=== PATIENT | male | born 1965 | race Caucasian/White ===

== ENCOUNTER 2018-07-19 20:07 | Emergency (ER) ==
[2018-07-19 20:18] VITALS: BP 159/96; TEMP 99.5; BMI 29.7
[2018-07-19] MEDS ORDERED: BACTRIM DS 800/160 MG PO STA (21:15)
[2018-07-19] MEDS ORDERED: MOTRIN PO STA (21:21)
--- NOTE | 2018-07-19 21:28 | ED.PDOC ---
General ED Provider: Dr. SHE BAUTISTA Chief Complaint: Finger Pain/Injury Stated Complaint: Left index finger luis and swelling at the base of the finger. Denies any trauma Time Seen by Physician: 21:00 Mode of Arrival: Walk-In Information Source: Patient Nursing and Triage Documentation Reviewed and Agree: Yes Does patient meet sepsis criteria?: No System Inflammatory Response Syndrome: Not Applicable Sepsis Protocol: For patient's 13 years and over: Temp is 96.8 and below OR 101 and greater Pulse >90 BPM Resp >20/minute Acutely Altered Mental Status Are patient's symptoms suggestive of a new infection, such as: -Pneumonia -Skin, Soft Tissue -Endocarditis -UTI -Bone, Joint Infection -Implantable Device -Acute Abdominal Infection -Wound Infection -Meningitis -Blood Stream Catheter Infection -Unknown Skin Complaint Exam - Skin/Soft Tissue Complaint/Exam Onset/Duration: 1 day Symptoms Are: Still present Timing: Constant Initial Severity: Moderate Current Severity: Moderate Location: Left index finger Character: Reports: Redness, Swelling, Painful Aggravating: Reports: Touch Alleviating: Reports: None Associated Signs and Symptoms: Reports: Tenderness, Red streaks. Denies: Fever , Chills, Itching, Drainage, Bruising, Joint swelling Related Surgical History: Reports: None Recent Exposure to Others w/Similar Symptoms: No Skin Findings: Present: Erythema, Induration, Skin lesion Differential Diagnoses: Abscess, Infection Review of Systems - Review Of Systems Constitutional: Reports: No symptoms Eyes: Reports: No symptoms Ears, Nose, Mouth, Throat: Reports: No symptoms Respiratory: Reports: No symptoms Cardiac: Reports: No symptoms GI: Reports: No symptoms : Reports: No symptoms Musculoskeletal: Reports: Joint pain (left index figer ) Skin: Reports: Lesions (left index finger infection.) Neurological: Reports: Anxiety Endocrine: Reports: No symptoms Hematologic/Lymphatic: Reports: No symptoms All Other Systems: Reviewed and Negative Past Medical History - Past Medical History Previously Healthy: Yes Endocrine: Reports: DM 2 Cardiovascular: Reports: Hypertension Respiratory: Reports: None Hematological: Reports: None Gastrointestinal: Reports: Liver (hepatitis C) Genitourinary: Reports: Kidney stones Neuro/Psych: Reports: CVA Musculoskeletal: Reports: None Cancer: Reports: None - Surgical History General Surgical History: Reports: Cholecystectomy, Other (Glass removed from the hand ) - Family History Family History: Reports: None - Social History Smoking Status: Current every day smoker, Heavy tobacco smoker Hx Substance Use: No Alcohol Screening: Occasionally - Immunizations Tetanus Shot up to Date: Yes (2018) Physical Exam - Physical Exam Appearance: Well-appearing Ill-appearing: Mild Pain Distress: Moderate Neck: Supple Respiratory: Airway patent Cardiovascular: RRR, Pulses normal, No rub, No murmur Musculoskeletal: Normal strength, ROM intact, No edema, No calf tenderness Skin: Warm, Dry, Normal color Neurological: Alert, Oriented Psychiatric: Anxious Critical Care Note - Critical Care Note Total Time (mins): 0 Course - Course Orders, Labs, Meds: Orders Category Date Time Status Ibuprofen [Motrin] MEDS 07/19/18 21:21 Discontinued 800 mg PO ONCE STA Sulfamethoxazole/Trimethoprim [Bactrim Ds 800/160 mg] MEDS 07/19/18 21:15 Discontinued 1 tab PO ONCE STA Medications Discontinued Medications Generic Name Dose Route Start Last Admin Trade Name Freq PRN Reason Stop Dose Admin Ibuprofen 800 mg 07/19/18 21:21 07/19/18 21:31 Motrin PO 07/19/18 21:22 800 mg ONCE STA Administration Trimethoprim/Sulfamethoxazole 1 tab 07/19/18 21:15 07/19/18 21:31 Bactrim Ds 800/160 Mg PO 07/19/18 21:16 1 tab ONCE STA Administration Vital Signs: Temp Pulse Resp BP Pulse Ox 07/19/18 20:10 99.5 F 72 20 159/96 H 96 Departure - Departure Time of Disposition: 21:34 Disposition: HOME SELF-CARE Discharge Problem: Pyonychia of finger of left hand Instructions: Paronychia (ED) Condition: Fair Pt referred to PMD for follow-up: Yes IPMP verified?: No Additional Instructions: Take medications as prescribed Follow up with PCP in 3 days Prescriptions: Ibuprofen [Motrin] 600 mg PO Q6H PRN #30 tablet PRN Reason: Analgesia Sulfamethoxazole/Trimethoprim [Bactrim Ds Tablet] 1 each PO BID #20 tablet Allergies/Adverse Reactions: Allergies Fish Containing Products Adverse Reaction (Verified 07/19/18 20:19) Difficulty Breathing Penicillins Adverse Reaction (Verified 07/19/18 20:18) Rash Home Medications: Ambulatory Orders Ibuprofen [Motrin] 600 mg PO Q6H PRN #30 tablet 07/19/18 Sulfamethoxazole/Trimethoprim [Bactrim Ds Tablet] 1 each PO BID #20 tablet 07/19 Disposition Discussed With: Patient
== END 2018-07-19 21:39 | disposition home or self-care (01) ==
LOC: ED 20:07
DX: M25.542 Pain in joints of left hand (principal); M25.442 Effusion, left hand; F41.9 Anxiety disorder, unspecified; Z72.0 Tobacco use; L03.012 Cellulitis of left finger
CPT/HCPCS: 99282

== ENCOUNTER 2018-09-24 17:46 | Emergency (ER) ==
[2018-09-24 18:06] VITALS: TEMP 96.5; BMI 28.3
[2018-09-24] MEDS ORDERED: TORADOL IVP STA (19:31)
[2018-09-24] MEDS ORDERED: TYLENOL PO STA (19:31)
--- NOTE | 2018-09-24 19:43 | ED.PDOC ---
General ED Provider: Dr. SHE BAUTISTA Chief Complaint: Syncope Stated Complaint: Patient is a 52 year old male who lives in [place] was here visiting his brother comes to the ER with complains of multiple syncopal episodes for 3 days. Episodes occur at rest. He also complains of chest pains off and on for the past 2.5 weeks lasting 15-20 mins at times. Not associated with diaphoresis and Today he had another fainting episode hitting his forehead occured about 4 hours ago. Time Seen by Physician: 19:43 Mode of Arrival: Walk-In Information Source: Patient Exam Limitations: No limitations Primary Care Provider: RITESH MOBLEY Nursing and Triage Documentation Reviewed and Agree: Yes Does patient meet sepsis criteria?: No System Inflammatory Response Syndrome: Not Applicable Sepsis Protocol: For patient's 13 years and over: Temp is 96.8 and below OR 101 and greater Pulse >90 BPM Resp >20/minute Acutely Altered Mental Status Are patient's symptoms suggestive of a new infection, such as: -Pneumonia -Skin, Soft Tissue -Endocarditis -UTI -Bone, Joint Infection -Implantable Device -Acute Abdominal Infection -Wound Infection -Meningitis -Blood Stream Catheter Infection -Unknown Review of Systems - Review Of Systems Constitutional: Denies: Diaphoresis, Loss of appetite Cardiac: Reports: Chest pain, Lightheadedness, Syncope GI: Reports: No symptoms. Denies: Nausea : Reports: No symptoms Musculoskeletal: Reports: No symptoms Skin: Reports: No symptoms Neurological: Reports: Anxiety Endocrine: Reports: No symptoms Hematologic/Lymphatic: Reports: No symptoms All Other Systems: Reviewed and Negative Past Medical History - Past Medical History Previously Healthy: Yes Endocrine: Reports: DM 2 Cardiovascular: Reports: Hypertension Respiratory: Reports: None Hematological: Reports: None Gastrointestinal: Reports: Liver (hepatitis C) Genitourinary: Reports: Kidney stones Neuro/Psych: Reports: CVA Musculoskeletal: Reports: None Cancer: Reports: None - Surgical History General Surgical History: Reports: Cholecystectomy, Other (Glass removed from the hand ) - Family History Family History: Reports: None - Social History Smoking Status: Current every day smoker Hx Substance Use: No Alcohol Screening: Occasionally - Immunizations Tetanus Shot up to Date: Yes Physical Exam - Physical Exam Appearance: Ill-appearing Ill-appearing: Moderate Pain Distress: Severe Eyes: SRIDEVI, EOMI Neck: Supple Respiratory: Airway patent, Breath sounds clear, Breath sounds equal, Respirations nonlabored Cardiovascular: RRR, Pulses normal (chest pain not reproduceable. ) GI/: Soft, Nontender, No masses, Bowel sounds normal, No Organomegaly Musculoskeletal: Normal strength, ROM intact Skin: Warm, Dry Neurological: Sensation intact, Alert, Oriented Psychiatric: Anxious Interpretation - Radiology Interpretation Radiology Interpretation By: Radiologist Radiology Results: Negative Exam Interpreted: CT Scan - EKG Interpretation Time of EKG #1: 19:02 Rate: Normal Rhythm: Sinus Ectopy: None [place]: NL ST Segment: Normal Interpretation: incomplete right bundle BB Re-Evaluation - Re-Evaluation Time of Re-Evaluation: 22:46 Status: Improved Vital Signs Stable: Yes - Re-Evaluation Time of Re-Evaluation: 23:42 Status: Improved (mildly ) Vital Signs Stable: Yes Pain Level: 5/10 Physician Notification - Case Discussed Physician Notified: Dr Goodman Time of Notification: 22:46 (ok to admit to [facility] but may not get paid by insurance. Get cardiology consult) Physician Notified: Dr. Chow At [facility] Time of Notification: 23:44 (accepted for transfer to [facility]) Critical Care Note - Critical Care Note Total Time (mins): 45 Course - Course Hematology/Chemistry: 09/24/18 19:45 09/24/18 19:45 Orders, Labs, Meds: Lab Review 09/24/18 09/24/18 09/24/18 19:45 19:45 19:45 WBC 13.57 H RBC 5.19 Hgb 14.8 Hct 44.7 MCV 86.1 MCH 28.5 MCHC 33.1 RDW Coeff of Scout 12.9 Plt Count 300 Immature Gran % (Auto) 0.4 Neut % (Auto) 57.8 Lymph % (Auto) 31.9 Hubbard % (Auto) 7.4 Eos % (Auto) 1.8 Baso % (Auto) 0.7 Immature Gran # (Auto) 0.1 Neut # (Auto) 7.9 H Lymph # (Auto) 4.3 H Hubbard # (Auto) 1.0 Eos # (Auto) 0.2 Baso # (Auto) 0.1 D-Dimer (Manual) 261.55 Sodium 137.9 Potassium 4.22 Chloride 98.8 Carbon Dioxide 31.8 H Anion Gap 11.52 BUN 10.8 Creatinine 0.79 Estimated GFR (MDRD) 104.00 BUN/Creatinine Ratio 13.67 Glucose 272.0 H Calcium 9.80 Total Bilirubin 0.55 AST 20.4 ALT 20.4 Alkaline Phosphatase 81.6 Total Creatine Kinase 54.6 L Troponin I < 0.012 NT-Pro-B Natriuret Pep Total Protein 7.63 Albumin 4.52 Globulin 3.11 Albumin/Globulin Ratio 1.45 09/24/18 19:45 WBC RBC Hgb Hct MCV MCH MCHC RDW Coeff of Scout Plt Count Immature Gran % (Auto) Neut % (Auto) Lymph % (Auto) Hubbard % (Auto) Eos % (Auto) Baso % (Auto) Immature Gran # (Auto) Neut # (Auto) Lymph # (Auto) Hubbard # (Auto) Eos # (Auto) Baso # (Auto) D-Dimer (Manual) Sodium Potassium Chloride Carbon Dioxide Anion Gap BUN Creatinine Estimated GFR (MDRD) BUN/Creatinine Ratio Glucose Calcium Total Bilirubin AST ALT Alkaline Phosphatase Total Creatine Kinase Troponin I NT-Pro-B Natriuret Pep 45.600 Total Protein Albumin Globulin Albumin/Globulin Ratio Orders Category Date Time Status EKG-(ED ONLY) Stat CARDIO 09/24/18 18:58 Completed EKG-(ED ONLY) Stat CARDIO 09/24/18 19:22 Completed ED IV/MEDIPORT/POWERPORT .ONCE EMERGENCY 09/24/18 19:31 Active Orthostatic [ED ORTHOSTATIC VITAL SIGNS] .ONCE EMERGENCY 09/24/18 21:31 Active CBC W/ AUTO DIFF Stat LAB 09/24/18 19:45 Completed COMPREHENSIVE METABOLIC PANEL Stat LAB 09/24/18 19:45 Completed CREATINE KINASE Stat LAB 09/24/18 19:45 Completed D-DIMER Stat LAB 09/24/18 19:45 Completed NT-PROBNP Stat LAB 09/24/18 19:45 Completed TROPONIN I Stat LAB 09/24/18 19:45 Completed 0.9 % Sodium Chloride [Saline Flush] MEDS 09/24/18 19:31 Discontinued 1 syr IVF PRN PRN Acetaminophen [Tylenol] MEDS 09/24/18 19:31 Discontinued 1,000 mg PO ONCE STA Ketorolac Tromethamine [Toradol] MEDS 09/24/18 19:31 Discontinued 30 mg IVP ONCE STA Nalbuphine HCl [Nubain] MEDS 09/24/18 22:23 Discontinued 10 mg IVP ONCE STA Nitroglycerin [Nitrostat] MEDS 09/24/18 23:05 Discontinued 0.4 mg SL ONCE STA Sodium Chloride 0.9% [Sodium Chloride] 1,000 ml MEDS 09/24/18 21:32 Discontinued IV BOLUS CHEST, 1V AP ONLY Stat RADS 09/24/18 19:[address] HEAD W/O CONTRAST Stat RADS 09/24/18 19:22 Completed Medications Discontinued Medications Generic Name Dose Route Start Last Admin Trade Name Freq PRN Reason Stop Dose Admin Acetaminophen 1,000 mg 09/24/18 19:31 09/24/18 20:52 Tylenol PO 09/24/18 19:32 1,000 mg ONCE STA Administration Sodium Chloride 1,000 mls @ 1,000 mls/hr 09/24/18 21:32 09/24/18 22:18 Sodium Chloride IV 09/24/18 22:31 1,000 mls/hr BOLUS STA Administration Ketorolac Tromethamine 30 mg 09/24/18 19:31 09/24/18 20:58 Toradol IVP 09/24/18 19:32 30 mg ONCE STA Administration Nalbuphine HCl 10 mg 09/24/18 22:23 09/24/18 22:30 Nubain IVP 09/24/18 22:24 10 mg ONCE STA Administration Nitroglycerin 0.4 mg 09/24/18 23:05 09/24/18 23:10 Nitrostat SL 09/24/18 23:06 0.4 mg ONCE STA Administration Sodium Chloride 1 syr 09/24/18 19:31 09/24/18 20:59 Saline Flush IVF 1 syr PRN PRN Administration To flush IV Vital Signs: Temp Pulse Resp BP Pulse Ox 09/24/18 21:52 56 L 147/84 H 09/24/18 21:51 60 148/92 H 09/24/18 17:55 96.5 F L 77 18 147/100 H 98 Departure - Departure Time of Disposition: 23:45 Disposition: TSF SHORT-TRM HOSP Discharge Problem: Syncope Chest pain Qualifiers: Chest pain type: unspecified Qualified Code(s): R07.9 - Chest pain, unspecified Condition: Stable Pt referred to PMD for follow-up: Yes IPMP verified?: No Allergies/Adverse Reactions: Allergies Fish Containing Products Adverse Reaction (Verified 09/24/18 18:54) Difficulty Breathing Penicillins Adverse Reaction (Verified 09/24/18 18:54) Rash Home Medications: Ambulatory Orders Albuterol Sulfate [Ventolin Hfa] 2 puff IH Q6HR PRN 09/24/18 Amitriptyline HCl [Elavil] 25 mg PO BEDTIME 09/24/18 Budesonide/Formoterol Fumarate [Symbicort 160-4.5 Mcg Inhaler] 2 puff IH BID Hum Insulin NPH/Reg Insulin Hm [Humulin 70-30] 17 units SUBCUT BID PRN 09/24/18 Metronidazole [Flagyl] 250 mg PO TID 09/24/18 Promethazine HCl 12.5 mg PO DIRECTED PRN 09/24/18 Sitagliptin Phosphate [Januvia] 100 mg PO DAILY 09/24/18 Pt. Stabilized Within Hospital's Capabilities/Transferred To: [facility] Transfer Form Completed: Yes Disposition Discussed With: Patient, Family
--- NOTE | 2018-09-24 20:08 | CT ---
EXAM: CT head without contrast HISTORY: Trauma COMPARISON: None. TECHNIQUE: Helical axial CT of the head was performed without contrast. Coronal and sagittal reconst ructions were performed. FINDINGS: There is no acute intracranial abnormality. There is no hemorrhage, mass, midline shift, abnormal ex tra-axial fluid collection, hydrocephalus or evolving ischemia. The levy-white matter junction is wel l maintained. There is no evidence of intravascular clot. Brain parenchyma, ventricles and sulci are normal. There are no acute calvarial lesions. Visualized orbits and globes are unremarkable. The mastoid ai r cells demonstrate no significant soft tissue opacification. The visualized paranasal sinuses show n o air-fluid levels. IMPRESSION: Negative head CT as described with no acute post traumatic intracranial abnormality.
--- NOTE | 2018-09-24 20:10 | DI ---
EXAM: Single view chest COMPARISON: None HISTORY: Syncope and trauma FINDINGS: There is some mild atelectasis in the left base with some modest vascular congestion. The re is no overt failure or lobar infiltrate. There is no large effusion. Cardiac and mediastinal rory houettes show no acute abnormality. No acute soft tissue or osseous abnormalities. IMPRESSION: 1. Left basilar atelectasis and vascular congestion.
[2018-09-24] MEDS ORDERED: SODIUM CHLORIDE 1,000 ML IV STA (21:32)
[2018-09-24 21:53] VITALS: BP 147/84
[2018-09-24] MEDS ORDERED: NUBAIN IVP STA (22:23)
[2018-09-24] MEDS ORDERED: NITROSTAT SL STA (23:05)
== END 2018-09-25 00:09 | disposition short-term general hospital (02) ==
LOC: ED 17:46
DX: R07.9 Chest pain, unspecified (principal); R55 Syncope and collapse; S09.90XA Unspecified injury of head, initial encounter; R42 Dizziness and giddiness; E11.9 Type 2 diabetes mellitus without complications; I10 Essential (primary) hypertension; F17.210 Nicotine dependence, cigarettes, uncomplicated; W19.XXXA Unspecified fall, initial encounter; Z79.4 Long term (current) use of insulin; Z79.899 Other long term (current) drug therapy; Z86.73 Personal history of transient ischemic attack (TIA), and cerebral infarction without residual deficits; Z87.442 Personal history of urinary calculi
CPT/HCPCS: 36415; 80053; 82550; 83880; 84484; 85025; 85379; 93005; 93010; 96361; 96374; 96375; 99285

== ENCOUNTER 2018-09-25 00:08 | Outpatient (CLI) ==
[2018-09-24 18:06] VITALS: BMI 28.3
== END 2018-09-25 00:29 | disposition short-term general hospital (02) ==
LOC: AMBL 00:08
PROVIDERS: ATTEND Internal Medicine Geriatric Medicine
DX: R55 Syncope and collapse (principal); R07.9 Chest pain, unspecified

== ENCOUNTER 2018-10-27 17:24 | Emergency (ER) ==
[2018-10-27 17:28] VITALS: TEMP 99.6; BMI 28.5
--- NOTE | 2018-10-27 18:26 | ED.PDOC ---
General ED Provider: Dr. PAUL HEART Chief Complaint: Sore Throat Stated Complaint: Neck and throat pain. States has not felt well-very fatigued. State has sore throat with white patches, fever. Has been nauseated and dizzy , non productive cough and left side of chest hurts. Hx Type II Diabetes. States from [place]-visiting his brother here Time Seen by Physician: 18:15 Mode of Arrival: Walk-In Information Source: Patient Exam Limitations: No limitations Primary Care Provider: RITESH MOBLEY Nursing and Triage Documentation Reviewed and Agree: Yes Does patient meet sepsis criteria?: No System Inflammatory Response Syndrome: Not Applicable Sepsis Protocol: For patient's 13 years and over: Temp is 96.8 and below OR 101 and greater Pulse >90 BPM Resp >20/minute Acutely Altered Mental Status Are patient's symptoms suggestive of a new infection, such as: -Pneumonia -Skin, Soft Tissue -Endocarditis -UTI -Bone, Joint Infection -Implantable Device -Acute Abdominal Infection -Wound Infection -Meningitis -Blood Stream Catheter Infection -Unknown Cardiovascular Complaint Exam - Chest Pain Complaint/Exam Onset: Gradual Symptoms Are: Resolved Timing: Intermittent Initial Severity: Moderate Current Severity: Mild Location: Reports: Left anterior Pain Radiates: Reports: None Character: Reports: Dull, Aching, Pressure Aggravating: Reports: None Alleviating: Reports: Rest Associated Signs and Symptoms: Denies: Diaphoresis, Nausea, Vomiting, Fever, Palpitations, Cough, Hemoptysis, Back pain, Abdominal pain, Dizziness, Short of air, Calf pain, Calf swelling Review of Systems - Review Of Systems Constitutional: Reports: Malaise, Weakness Eyes: Reports: No symptoms Ears, Nose, Mouth, Throat: Reports: No symptoms Respiratory: Reports: No symptoms, Cough Cardiac: Reports: No symptoms (lt side aching), Chest pain GI: Reports: No symptoms : Reports: No symptoms Musculoskeletal: Reports: No symptoms Skin: Reports: No symptoms Neurological: Reports: No symptoms Endocrine: Reports: No symptoms Hematologic/Lymphatic: Reports: No symptoms All Other Systems: Reviewed and Negative Past Medical History - Past Medical History Previously Healthy: Yes Endocrine: Reports: DM 2 Cardiovascular: Reports: Hypertension Respiratory: Reports: None Hematological: Reports: None Gastrointestinal: Reports: Liver (hepatitis C) Genitourinary: Reports: Kidney stones Neuro/Psych: Reports: CVA Musculoskeletal: Reports: None Cancer: Reports: None - Surgical History General Surgical History: Reports: Cholecystectomy, Other (Glass removed from the hand ) - Family History Family History: Reports: None - Social History Smoking Status: Current every day smoker Hx Substance Use: No Alcohol Screening: Occasionally Physical Exam - Physical Exam Appearance: Well-appearing Ill-appearing: Mild Pain Distress: None Eyes: SRIDEVI, EOMI, Conjunctiva clear ENT: Ears normal, Nose normal, Oropharynx normal, Erythema Neck: Supple (NO JVD or HJR noted to exam) Respiratory: Airway patent, Breath sounds clear, Breath sounds equal, Respirations nonlabored Cardiovascular: RRR, Pulses normal, No rub, No murmur GI/: Soft Musculoskeletal: Normal strength, ROM intact, No edema, No calf tenderness Skin: Warm, Dry, Normal color Neurological: Sensation intact, Motor intact, Reflexes intact, Cranial nerves intact, Alert, Oriented Psychiatric: Affect appropriate, Mood appropriate Interpretation - EKG Interpretation Time of EKG #1: 17:40 Rate: Normal Rhythm: Sinus Ectopy: None Interpretation: Incomplete RBBB Critical Care Note - Critical Care Note Total Time (mins): 0 Course - Course Hematology/Chemistry: 10/27/18 18:35 10/27/18 18:35 Orders, Labs, Meds: Lab Review 10/27/18 10/27/18 10/27/18 18:35 18:35 18:35 WBC 13.38 H RBC 4.84 Hgb 14.0 Hct 42.1 MCV 87.0 MCH 28.9 MCHC 33.3 RDW Coeff of Scout 13.1 Plt Count 288 Immature Gran % (Auto) 0.4 Neut % (Auto) 59.3 Lymph % (Auto) 29.1 Roane % (Auto) 9.2 Eos % (Auto) 1.6 Baso % (Auto) 0.4 Immature Gran # (Auto) 0.1 Neut # (Auto) 7.9 H Lymph # (Auto) 3.9 H Roane # (Auto) 1.2 Eos # (Auto) 0.2 Baso # (Auto) 0.1 Sodium 142.0 Potassium 4.12 Chloride 101.1 Carbon Dioxide 32.0 H Anion Gap 13.02 BUN 10.1 Creatinine 0.91 Estimated GFR (MDRD) 88.00 BUN/Creatinine Ratio 11.09 Glucose 126.9 H Calcium 9.84 Total Bilirubin 0.44 AST 17.2 ALT 16.8 Alkaline Phosphatase 67.5 Total Creatine Kinase 81.6 Troponin I < 0.012 NT-Pro-B Natriuret Pep Total Protein 7.64 Albumin 4.39 Globulin 3.25 Albumin/Globulin Ratio 1.35 Urine Color Urine Clarity Urine pH Ur Specific [place]gate Urine Protein Urine Glucose (UA) Urine Ketones Urine Blood Urine Nitrite Urine Bilirubin Urine Urobilinogen Ur Leukocyte Esterase Urine Microscopic RBC Ur Squamous Epith Cells Amorphous Sediment Urine Opiates Screen Ur Oxycodone Screen Urine Methadone Screen Ur Propoxyphene Screen Ur Barbiturates Screen U Tricyclic Antidepress Ur Phencyclidine Scrn Ur Amphetamine Screen U Methamphetamines Scrn U Benzodiazepines Scrn Urine Cocaine Screen U Cannabinoids Screen Influ A Molecular Assay Negative by naat Influ B Molecular Assay Negative by naat 10/27/18 10/27/18 10/27/18 18:35 19:10 19:10 WBC RBC Hgb Hct MCV MCH MCHC RDW Coeff of Scout Plt Count Immature Gran % (Auto) Neut % (Auto) Lymph % (Auto) Ro[place] % (Auto) Eos % (Auto) Baso % (Auto) Immature Gran # (Auto) Neut # (Auto) Lymph # (Auto) Roane # (Auto) Eos # (Auto) Baso # (Auto) Sodium Potassium Chloride Carbon Dioxide Anion Gap BUN Creatinine Estimated GFR (MDRD) BUN/Creatinine Ratio Glucose Calcium Total Bilirubin AST ALT Alkaline Phosphatase Total Creatine Kinase Troponin I NT-Pro-B Natriuret Pep 54.700 Total Protein Albumin Globulin Albumin/Globulin Ratio Urine Color Yellow Urine Clarity Clear Urine pH 6.5 Ur Specific [place] 1.025 Urine Protein Trace Urine Glucose (UA) Negative Urine Ketones Negative Urine Blood Negative Urine Nitrite Negative Urine Bilirubin Negative Urine Urobilinogen 1.0 Ur Leukocyte Esterase Negative Urine Microscopic RBC 2-5 Ur Squamous Epith Cells 2-5 Amorphous Sediment Trace Urine Opiates Screen Negative Ur Oxycodone Screen Negative Urine Methadone Screen Negative Ur Propoxyphene Screen Negative Ur Barbiturates Screen Negative U Tricyclic Antidepress Negative Ur Phencyclidine Scrn Negative Ur Amphetamine Screen Negative U Methamphetamines Scrn Negative U Benzodiazepines Scrn Negative Urine Cocaine Screen Negative U Cannabinoids Screen Negative Influ A Molecular Assay Influ B Molecular Assay Orders Category Date Time Status EKG-(ED ONLY) Stat CARDIO 10/27/18 17:55 Completed CBC W/ AUTO DIFF Stat LAB 10/27/18 18:35 Completed CMP [COMPREHENSIVE METABOLIC PANEL] Stat LAB 10/27/18 18:35 Completed CPK [CREATINE KINASE] Stat LAB 10/27/18 18:35 Completed FLU A & B MOLECULAR [FLU A/B MOLECULAR] Stat LAB 10/27/18 18:35 Completed PRO-BNP [NT-PROBNP] Stat LAB 10/27/18 18:35 Completed RAPID STREP SCREEN [MOLECULAR GROUP A STREP] Stat LAB 10/27/18 18:35 Completed TROPONIN I Stat LAB 10/27/18 18:35 Completed UA [URINALYSIS C & S IF INDICATED] Stat LAB 10/27/18 19:10 Completed URINE DRUG SCREEN (RAPID FOR ED) [DRUG SCREEN, URINE, LAB 10/27/18 19:10 Completed RAPID] Stat CHEST, 2 VIEWS PA & LAT Stat RADS 10/27/18 18:24 Completed Vital Signs: Temp Pulse Resp BP Pulse Ox 10/27/18 19:32 161/81 H 10/27/18 18:15 72 129/95 H 98 10/27/18 17:30 80 14 160/92 H 98 10/27/18 17:24 99.6 F 76 20 151/94 H 97 TONA Risk Score TONA Risk Score: Risk Score Odds of by 30D 0 0.1 (0.1-0.2) 1 0.3 (0.2-0.3) 2 0.4 (0.3-0.5) 3 0.7 (0.6-0.9) 4 1.2 (1.0-1.5) 5 2.2 (1.9-2.6) 6 3.0 (2.5-3.6) 7 4.8 (3.8-6.1) Departure - Departure Time of Disposition: 19:30 Disposition: HOME SELF-CARE Discharge Problem: URI (upper respiratory infection), Pharyngitis, Hypertension Instructions: Upper Respiratory Infection (ED), Hypertension (ED) Condition: Good Pt referred to PMD for follow-up: Yes IPMP verified?: No Additional Instructions: Remain on current meds Establish with Local PCP or return to [place] Prescriptions: Azithromycin [Zithromax] 250 mg PO DAILY #6 tablet Lisinopril 10 mg PO DAILY #15 tablet Allergies/Adverse Reactions: Allergies Fish Containing Products Adverse Reaction (Verified 10/27/18 17:28) Difficulty Breathing Penicillins Adverse Reaction (Verified 10/27/18 17:28) Rash Home Medications: Ambulatory Orders Albuterol Sulfate [Ventolin Hfa] 2 puff IH Q6HR PRN 09/24/18 Amitriptyline HCl [Elavil] 25 mg PO BEDTIME 09/24/18 Budesonide/Formoterol Fumarate [Symbicort 160-4.5 Mcg Inhaler] 2 puff IH BID Hum Insulin NPH/Reg Insulin Hm [Humulin 70-30] 17 units SUBCUT BID PRN 09/24/18 Sitagliptin Phosphate [Januvia] 100 mg PO DAILY 09/24/18 Azithromycin [Zithromax] 250 mg PO DAILY #6 tablet 10/27/18 Lisinopril 10 mg PO DAILY #15 tablet 10/27/18 Transfer Form Completed: Yes Disposition Discussed With: Patient
--- NOTE | 2018-10-27 19:03 | DI ---
Exam: Two views of the chest. Comparison: 09/24/2018. Reason for exam: Chest and neck discomfort. FINDINGS: No pneumothorax, pleural effusion, or focal consolidation. The cardiac silhouette is not enlarged. The imaged osseous structures appear grossly unremarkable without acute fracture. Similar appearing mildly increased interstitial lung markings. Impression: Mild pulmonary vascular congestion without pneumothorax, pleural effusion, or focal airspace consolid ation
[2018-10-27 19:40] VITALS: BP 129/95
== END 2018-10-27 19:48 | disposition home or self-care (01) ==
LOC: ED 17:24
DX: J06.9 Acute upper respiratory infection, unspecified (principal); J02.9 Acute pharyngitis, unspecified; I10 Essential (primary) hypertension; E11.9 Type 2 diabetes mellitus without complications; R07.9 Chest pain, unspecified; R42 Dizziness and giddiness; F17.210 Nicotine dependence, cigarettes, uncomplicated; Z79.899 Other long term (current) drug therapy
CPT/HCPCS: 36415; 80053; 80306; 81001; 82550; 83880; 84484; 85025; 87502; 87651; 93005; 93010; 99283

== ENCOUNTER 2020-02-15 21:56 | Observation (INO) ==
[2020-02-15 22:31] LABS: BASOPHILS # (AUTO) 0.1 K/uL (0-0.2); BASOPHILS % (AUTO) 0.4 % (0.0-3.0); EOSINOPHILS # (AUTO) 0.2 K/ul (0.0-0.7); EOSINOPHILS % (AUTO) 1.9 % (0.0-7.0); HEMATOCRIT 44.2 % (42.0-52.0); IMMATURE GRANULOCYTE % (AUTO) 0.3 % (0.0-5.0); LYMPHOCYTES # (AUTO) 3.1 K/uL (0.60-3.4); LYMPHOCYTES % (AUTO) 26.3 (10.0-50.0); MEAN CORPUSCULAR HEMOGLOBIN 29.4 pg (27.0-31.0); MEAN CORPUSCULAR HGB CONC 33.9 (31.8-35.4); MEAN CORPUSCULAR VOLUME 86.7 fl (80.0-94.0); MONOCYTES # (AUTO) 1.2 K/uL (0.4-2.0); MONOCYTES % (AUTO) 9.6 (0-10); NEUTROPHILS # (AUTO) 7.3 K/ul (2.0-6.9); NEUTROPHILS % (AUTO) 61.5 % (42.2-75.2); PLATELET COUNT 271 10^3/uL (140-440); RDW COEFFICIENT OF VARIATION 12.6 % (11.6-14.8); WHITE BLOOD COUNT 11.94 K/ul (4.2-10.2)
[2020-02-15 22:43] LABS: ALANINE AMINOTRANSFERASE 16.4 U/L (0-50); ALBUMIN 3.88 g/dL (3.5-5.0); ALKALINE PHOSPHATASE 95.5 U/L (38-126); ASPARTATE AMINO TRANSFERASE 17.3 U/L (17-59); BILIRUBIN,TOTAL 0.47 mg/dL (0.2-1.3); BLOOD UREA NITROGEN 9.7 mg/dL (9-20); CALCIUM 9.58 mg/dL (8.4-10.2); CARBON DIOXIDE 29.9 mmol/L (22-30.0); CHLORIDE 96.7 mmol/L (98-107); CREATINE KINASE 36.5 U/L (55-170); CREATININE 0.71 mg/dL (0.60-1.10); POTASSIUM 4.71 mmol/L (3.5-5.1); SODIUM 133.2 mmol/L (134.5-145); TOTAL PROTEIN 7.24 g/dL (6.3-8.2)
[2020-02-15 22:49] LABS: GLUCOSE 618.4 mg/dL (74-106)
[2020-02-15] MEDS ORDERED: SODIUM CHLORIDE 1,000 ML IV STA (22:52)
[2020-02-15 22:55] LABS: TROPONIN I < 0.012 ng/ml (0.0000-0.120)
--- NOTE | 2020-02-15 22:55 | CT ---
EXAM: CT scan brain without contrast HISTORY: Trauma COMPARISON: CT scan brain 11/26/2019 FINDINGS: Contiguous axial images obtained from skull base to the convexities without contrast utili zing 5-mm collimation. Sagittal and coronal reconstructions were imaged and reviewed. The ventricles and CSF spaces are within normal limits. There are no acute intracranial findings.. The visualized paranasal sinuses and mastoid air cells are clear. The calvarium is intact. IMPRESSION: No acute intracranial findings
[2020-02-15] MEDS ORDERED: HUMULIN R IVP STA (22:56)
--- NOTE | 2020-02-15 23:08 | CT ---
EXAM: CT scan facial bones without contrast HISTORY: Trauma COMPARISON: None. FINDINGS: Contiguous axial images obtained through the facial bones without contrast 3-mm collimatio n. Sagittal and coronal reveals reactions were imaged and reviewed.. The orbital structures are int act. The visualized paranasal sinuses are clear. The maxilla is edentulous. Multiple teeth missing are within the mandible. There are multiple caries. There is a lytic destructive process involving the anterior aspect of the maxilla on the left. IMPRESSION: Attention was maxilla. Peripheral disease within the mandible. Lytic destructive process involving the anterior aspect of the maxilla on the left. Consider non emergent MRI for further characterization.
--- NOTE | 2020-02-15 23:09 | ED.PDOC ---
General ED Provider: Dr. PAUL GEORGES-ER Chief Complaint: Tooth Problem Stated Complaint: my tooth is killing me Time Seen by Physician: 23:18 Mode of Arrival: Walk-In Information Source: Patient Primary Care Provider: RITESH MOBLEY Nursing and Triage Documentation Reviewed and Agree: Yes Does patient meet sepsis criteria?: No System Inflammatory Response Syndrome: Not Applicable Sepsis Protocol: For patient's 13 years and over: Temp is 96.8 and below OR 101 and greater Pulse >90 BPM Resp >20/minute Acutely Altered Mental Status Are patient's symptoms suggestive of a new infection, such as: -Pneumonia -Skin, Soft Tissue -Endocarditis -UTI -Bone, Joint Infection -Implantable Device -Acute Abdominal Infection -Wound Infection -Meningitis -Blood Stream Catheter Infection -Unknown Neurological Complaint Exam Headache Complaint/Exam Onset: Gradual Duration: 24hs Symptoms Are: Still present Timing: Constant Worst Headache Ever: No Initial Severity: Mild Current Severity: Mild Location: Diffuse Character: Reports Dull and Throbbing Aggravating: Reports None Alleviating: Reports None Associated Signs and Symptoms: Reports Nausea Related Surgical History: Reports None Meningitis Risk Factors: Reports None Normal Head CT Within Last 12 Months: No Fundoscopic Exam: Present Normal Findings Papilledema Present: No Temporal Artery Tenderness: Present None Sinus Tenderness: Present None TMJ Tenderness: Present None Glascow Coma Scale (see protocol): 15 Meningeal Signs Positive: No Pain on Passive Flexion-Positive Kernig's: Yes ROM Limited In: No Limitiations Focal Weakness: Present None Focal Sensory Loss: Present None Gait: Normal Nystagmus Present: No Gag Reflex Present: Yes [id number]: Normal Findings Romberg Test Positive: No Babinski Sign: Negative Right and Negative Left Heel to Toe Normal: Yes Differential Diagnoses: Migraine and Tension Headache Review of Systems Review Of Systems Constitutional: Reports No symptoms Eyes: Reports No symptoms Ears, Nose, Mouth, Throat: Reports No symptoms Respiratory: Reports No symptoms Cardiac: Reports No symptoms GI: Reports No symptoms : Reports No symptoms Musculoskeletal: Reports No symptoms Skin: Reports No symptoms Neurological: Reports Headache Endocrine: Reports No symptoms Hematologic/Lymphatic: Reports No symptoms All Other Systems: Reviewed and Negative Physical Exam Physical Exam Appearance: Reports Well-appearing Ill-appearing: None Pain Distress: Mild Eyes: Reports SRIDEVI, EOMI and Conjunctiva clear ENT: Reports Ears normal, Nose normal and Oropharynx normal Neck: Supple Respiratory: Reports Airway patent, Breath sounds clear and Breath sounds equal Cardiovascular: Reports RRR, Pulses normal, No rub and No murmur GI/: Reports Soft, Nontender, No masses and Bowel sounds normal Musculoskeletal: Reports Normal strength, ROM intact, No edema and No calf tenderness Skin: Reports Warm, Dry and Normal color Neurological: Reports Sensation intact, Motor intact, Reflexes intact, Cranial nerves intact, Alert and Oriented Psychiatric: Reports Affect appropriate and Mood appropriate Interpretation Radiology Interpretation Radiology Interpretation By: Radiologist Radiology Results: Positive Exam Interpreted: CT Scan EKG Interpretation Time of EKG #1: 23:15 Rate: Normal Rhythm: Sinus Ectopy: None [place]: NL ST Segment: Normal Interpretation: nsr Critical Care Note Critical Care Note Total Critical Care Time (mins): 0 Course Course Hematology/Chemistry: 02/15/20 22:23 02/15/20 22:23 Orders, Labs, Meds: Lab Review 02/15/20 02/15/20 02/15/20 22:23 22:23 22:23 WBC 11.94 H RBC 5.10 Hgb 15.0 Hct 44.2 MCV 86.7 MCH 29.4 MCHC 33.9 RDW Coeff of Scout 12.6 Plt Count 271 Immature Gran % (Auto) 0.3 Neut % (Auto) 61.5 Lymph % (Auto) 26.3 Bath % (Auto) 9.6 Eos % (Auto) 1.9 Baso % (Auto) 0.4 Neut # (Auto) 7.3 H Lymph # (Auto) 3.1 Bath # (Auto) 1.2 Eos # (Auto) 0.2 Baso # (Auto) 0.1 Immature Gran # (Auto) 0.0 Sodium 133.2 L Potassium 4.71 Chloride 96.7 L Carbon Dioxide 29.9 Anion Gap 11.31 BUN 9.7 Creatinine 0.71 Estimated GFR (MDRD) 117.00 BUN/Creatinine Ratio 13.66 Glucose 618.4 H* Hemoglobin A1c 12.19 H Calcium 9.58 Total Bilirubin 0.47 AST 17.3 ALT 16.4 Alkaline Phosphatase 95.5 Total Creatine Kinase 36.5 L Troponin I < 0.012 Total Protein 7.24 Albumin 3.88 Globulin 3.36 Albumin/Globulin Ratio 1.15 Orders Category Date Time Status ABG DRAW REQUEST Stat CARDIO 02/15/20 22:52 Ordered EKG-(ED ONLY) Stat CARDIO 02/15/20 22:21 Ordered ED IV/MEDIPORT/POWERPORT .ONCE EMERGENCY 02/15/20 22:52 Active ABG Stat LAB 02/15/20 22:52 Ordered CBC W/ AUTO DIFF Stat LAB 02/15/20 22:23 Completed COMPREHENSIVE METABOLIC PANEL Stat LAB 02/15/20 22:23 Completed CREATINE KINASE Stat LAB 02/15/20 22:23 Completed HEMOGLOBIN A1C Stat LAB 02/15/20 22:23 Completed TROPONIN I Stat LAB 02/15/20 22:23 Completed 0.9 % Sodium Chloride [Saline Flush] MEDS 02/15/20 22:52 Active 1 syr IVF PRN PRN Insulin Regular, Human [Humulin R] MEDS 02/15/20 22:56 Discontinued 10 unit IVP ONCE STA Sodium Chloride 0.9% [Sodium Chloride] 1,000 ml MEDS 02/15/20 22:52 Active IV 100 mls/hr CT HEAD W/O CONTRAST Stat RADS 02/15/20 22:[address] MAXILLOFACIAL W/O CONTRAST Stat RADS 02/15/20 22:19 Completed Medications Generic Name Dose Route Start Last Admin Trade Name Freq PRN Reason Stop Dose Admin Sodium Chloride 1,000 mls @ 100 mls/hr 02/15/20 22:52 Sodium Chloride IV 02/16/20 08:51 .Q10H STA Sodium Chloride 1 syr 02/15/20 22:52 0.9% Sodium Chloride 10 Ml Disp.Syrin IVF PRN PRN To flush IV Discontinued Medications Generic Name Dose Route Start Last Admin Trade Name Freq PRN Reason Stop Dose Admin Insulin Human Regular 10 unit 02/15/20 22:56 Insulin Regular, Human 100 Unit/Ml (3ml) Vial IVP 02/15/20 22:57 ONCE STA Vital Signs: Temp Pulse Resp BP Pulse Ox 02/15/20 21:57 99.8 F H 74 20 106/65 98 Discharge Plan Discharge Patient Disposition: PLACED OBSERVATION Discharge Problem: Toothache, Uncontrolled diabetes mellitus Prescriptions: No Action amitriptyline 25 MG tablet 25 mg PO BEDTIME RF: 0 albuterol sulfate [Ventolin HFA] 8 GM HFA aerosol inhaler 2 puff inhalation Q6HR PRN (Reason: Wheezing) RF: 0 Januvia 100 MG tablet 100 mg PO DAILY RF: 0 budesonide-formoterol [Symbicort] 1 PUFF HFA aerosol inhaler 2 puff inhalation BID RF: 0 lisinopril 10 MG tablet 10 mg PO DAILY Qty: 15 RF: 0 metformin 500 mg Tablet 1,000 mg PO BID RF: 0 insulin NPH and regular human 100 unit/mL (70-30) Insulin Pen 17 unit SUBCUT BID RF: 0 ED Provider: PAUL SANFORD Condition: Good Physician Progress Note: []
[2020-02-15 23:18] LABS: ABG BASE EXCESS 2 (-2.0-2.0); ABG HCO3 25 (22.0-26.0); ABG PCO2 29.6 mmHg (35-45); ABG PH 7.534 (7.35-7.45); ABG TCO2 26 (22.0-28.0)
[2020-02-15] MEDS ORDERED: VENTOLIN HFA (PER PUFF-WITH SPACER) IH PRN (23:25)
[2020-02-15] MEDS ORDERED: ZOFRAN 4 MG/2 ML IVP PRN (23:35)
[2020-02-16 00:10] VITALS: BMI 28.0
[2020-02-16] MEDS: NORCO 7.5-325 PO PRN ×4 (00:22→12:22)
[2020-02-16] MEDS: HUMULIN R SUBCUT PRN ×7 (00:22→16:03)
[2020-02-16] MEDS: NICODERM 21 MG TD SCH ×2 (00:24→08:27)
[2020-02-16] MEDS ORDERED: CLEOCIN 600 MG/50 ML D5W 600 MG/50 ML BAG IV SCH ×2 (00:30→01:00)
[2020-02-16 05:35] LABS: BASOPHILS # (AUTO) 0.1 K/uL (0-0.2); BASOPHILS % (AUTO) 0.4 % (0.0-3.0); EOSINOPHILS # (AUTO) 0.2 K/ul (0.0-0.7); EOSINOPHILS % (AUTO) 1.8 % (0.0-7.0); HEMATOCRIT 42.3 % (42.0-52.0); HEMOGLOBIN 14.7 g/dl (14.0-18.0); IMMATURE GRANULOCYTE # (AUTO) 0.1 (0.0-1.0); IMMATURE GRANULOCYTE % (AUTO) 0.4 % (0.0-5.0); LYMPHOCYTES # (AUTO) 4.5 K/uL (0.60-3.4); LYMPHOCYTES % (AUTO) 33.8 (10.0-50.0); MEAN CORPUSCULAR HEMOGLOBIN 29.8 pg (27.0-31.0); MEAN CORPUSCULAR HGB CONC 34.8 (31.8-35.4); MEAN CORPUSCULAR VOLUME 85.8 fl (80.0-94.0); MONOCYTES # (AUTO) 1.3 K/uL (0.4-2.0); MONOCYTES % (AUTO) 9.7 (0-10); NEUTROPHILS # (AUTO) 7.2 K/ul (2.0-6.9); NEUTROPHILS % (AUTO) 53.9 % (42.2-75.2); PLATELET COUNT 272 10^3/uL (140-440); RDW COEFFICIENT OF VARIATION 12.5 % (11.6-14.8); RED BLOOD COUNT 4.93 10^6/ul (4.70-6.10)
[2020-02-16 05:49] LABS: ALANINE AMINOTRANSFERASE 15.3 U/L (0-50); ALBUMIN 3.76 g/dL (3.5-5.0); ALKALINE PHOSPHATASE 82.4 U/L (38-126); ASPARTATE AMINO TRANSFERASE 19.7 U/L (17-59); BILIRUBIN,TOTAL 0.48 mg/dL (0.2-1.3); BLOOD UREA NITROGEN 10.5 mg/dL (9-20); CALCIUM 9.21 mg/dL (8.4-10.2); CARBON DIOXIDE 31.3 mmol/L (22-30.0); CHLORIDE 100.6 mmol/L (98-107); CREATININE 0.62 mg/dL (0.60-1.10); GLUCOSE 191.4 mg/dL (74-106); POTASSIUM 3.87 mmol/L (3.5-5.1); SODIUM 136.5 mmol/L (134.5-145); TOTAL PROTEIN 7.07 g/dL (6.3-8.2)
[2020-02-16] MEDS: CLEOCIN 600 MG/50 ML D5W 600 MG/50 ML BAG IV SCH ×2 (08:25→15:33)
[2020-02-16] MEDS ORDERED: ZESTRIL PO SCH (09:00)
[2020-02-16] MEDS ORDERED: HUMALOG MIX 75-25 SUBCUT SCH (09:00)
[2020-02-16] MEDS ORDERED: JANUVIA PO SCH (09:00)
[2020-02-16] MEDS ORDERED: SYMBICORT 160-4.5 MCG INHALER IH SCH (09:00)
[2020-02-16] MEDS ORDERED: HUMULIN 70-30 SUBCUT SCH (09:00)
[2020-02-16] MEDS ORDERED: NORCO 10-325 PO PRN (13:15)
[2020-02-16 17:55] VITALS: BP 107/71; TEMP 97.9
--- NOTE | 2020-02-16 17:56 | MRI ---
Exam: MRI of the facial bones without and with contrast History: History: Lytic area of the anterior mandible Technique: Multiplanar multisequence MRI of the head and face pre and postcontrast FINDINGS: CT 02/15/2020 shows a lytic process of the left anterior mandible. I the same area shows a enhancing soft tissue mass in the left no obvious marrow edema. No significant sinus disease. Orb ital fat is clear. No soft tissue abnormalities. Intracranially there is no parenchymal signal abno rmality. Flow voids are normal. Normal vestibular cochlear structures and cerebellopontine angle. Normal clivus, foramen magnum and sella. Impression: 1. No intracranial abnormality 2. Area concern in the left anterior maxilla shows no enhancing soft tissue component. Question shreya or dental disease or cleft palate. Correlate for current symptoms.
[2020-02-16] MEDS ORDERED: ELAVIL PO SCH (21:00)
--- NOTE | 2020-07-06 08:30 | SSS ---
DATE OF SERVICE: 02/15/20 ADMIT; 02/16/20 DISCHARGE PRINCIPAL DIAGNOSIS: 1. ABSCESS TOOTH 2. UNCONTROLLED DIABETES DISCUSSION: This is a 54-year-old gentleman who by his own admission does not take his insulin regularly. He presented to the Emergency Department with complaints of tooth pain. His teeth have been uncomfortable for several days with CT scan concerning for soft tissue process. His blood glucose was over 600. Blood gases did not reveal any evidence of acidosis; however, because of the appearance of the CT scan and his uncontrolled blood sugar, the patient was admitted overnight for observation for control of blood sugars, antibiotics and recommended MRI. PAST MEDICAL HISTORY: MEDICATIONS: Amitriptyline Albuterol Januvia Symbicort Lisinopril Metformin NPH and regular insulin ALLERGIES: NO DRUG ALLERGIES PAST MEDICAL HISTORY: Significant for diabetes, Type 2 insulin treated History of asthma Hypertension PAST SURGICAL HISTORY: Please see past medical history. SOCIAL HISTORY: Denies any history of smoking, alcohol use. FAMILY HISTORY: Reviewed and thought not to be significant. REVIEW OF SYSTEMS: Denies any fever, chills, chest pain, shortness of breath, hemoptysis, abdominal pain, blood in the stool, urinary symptoms or seizures. PHYSICAL EXAMINATION: VITAL SIGNS: Temperature 99.8, pulse 74, respirations 20 and blood pressure 106/65. HEENT: Pupils are round. NECK: Supple. CHEST: Clear. CARDIOVASCULAR: Regular rate and rhythm. ABDOMEN: Soft, nontender. EXTREMITIES: Distal extremities without cyanosis or edema. CLINICAL COURSE: The patient was started on IV antibiotics. His insulin was adjusted. His blood sugars accordingly responded the following morning. His blood glucose had diminished to 191. Sodium improved to 136. Again, maxillofacial CT was obtained and there was some concern of a lytic process involving the anterior aspect of maxillary on the left. The radiologist recommended MRI. The MRI was obtained and revealed no soft tissue component only dental disease pertinent to his history of poor dentition. Because his blood sugars improved, his pain was controlled. At this point the patient was discharged with antibiotics plus analgesics. He is strongly urged to followup with his M.D. at home. I suspect he is going to need referral to a dentist, perhaps even an neurosurgical nurse and also to pay attention to his blood sugars at home to improve control. SALUD
== END 2020-02-16 18:35 | disposition home or self-care (01) ==
LOC: ED 21:56 → MEDSURG B 21:56
PROVIDERS: ADMIT Family Medicine; ATTEND Family Medicine
DX: E11.65 Type 2 diabetes mellitus with hyperglycemia; R51.9 Headache, unspecified; R11.0 Nausea; K08.89 Other specified disorders of teeth and supporting structures